=== PATIENT | male | born 1975 | race Caucasian/White ===

== ENCOUNTER 2021-09-14 10:41 | Emergency (ER) | payer SELFPAY ==
[~2021-09-14] VITALS: Ht 172.7 cm; Wt 84.6 kg
[2021-09-14 10:53] VITALS: BP 122/64
[2021-09-14] MEDS ORDERED: FLUORESCEIN (FLUOR-I-STRIPS) 1 MG STRP ONE (10:54)
[2021-09-14] MEDS ORDERED: TETRACAINE 0.5% OPHTH SOLN 4 ML BTL (SINGLE DOSE ONLY) ONE (10:54)
--- NOTE | 2021-09-14 11:12 | ED EENT ---
History of Present Illness General Chief Complaint: Eye Problems Stated Complaint: FB IN LEFT EYE Nursing Triage Note: left eye burning and pain, FB sensation Source: patient Exam Limitations: no limitations History of Present Illness Date Seen by Provider: Sep 14, 2021 Time Seen by Provider: 10:55 Initial Comments Patient is a 46-year-old male who presents with embedded metal foreign body into his left cornea. Patient was grinding metal 2 days ago without wearing safety goggles. He reports increasing pain, tearimg and foreign body sensation upon ri ght vision gaze. No other symptoms or complaints. Last known tetanus is believed to be greater than 10 years. Patient does not work eyeglasses of corrective lenses Timing/Duration: gradual Severity: moderate Location: eye (L) Prearrival Treatment: flushing eyes Modifying Factors: Improves With Other Associated Symptoms: other Allergies and Home Medications Allergies Coded Allergies: No Known Drug Allergies (Unverified , 09/14/21) Patient Home Medication List Home Medication List Reviewed: Yes Review of Systems Review of Systems Constitutional: see HPI Eyes: Blurred Vision, Foreign Body Sensation Past Pzmcsdf-Ieusip-Mbhwuk Hx Patient Social History Tobacco Use?: Yes Tobacco type used: Cigars Substance use?: No Alcohol Use?: No Pt feels they are or have been: No Physical Exam Vital Signs Vital Signs - First Documented 09/14/21 10:53 Temp 36.4 Pulse 67 Resp 16 B/P (MAP) 122/64 (83) Pulse Ox 99 O2 Delivery Room Air Height, Weight, BMI Height: '" Weight: lbs. oz. kg; 28.00 BMI Method: General Appearance: WD/WN Eyes: left eye stye, left eye other (Punctate rust ring at the 5 o'clock positi on of the cornea below the level of the pupil) Progress/Results/Core Measures Results/Orders My Orders Orders - GIGI WOODRUFF DO Fluorescein Strips (Gobbj-[facility]-Medm[facility]) (09/14/21 10:54) Tetracaine 0.5% Ophth Casandra Sdv (Tetracai (09/14/21 10:54) Vital Signs/I&O 09/14/21 10:53 Temp 36.4 Pulse 67 Resp 16 B/P (MAP) 122/64 (83) Pulse Ox 99 O2 Delivery Room Air Blood Pressure Mean: 83 Departure Communication (Admissions) Tetanus updated. Patient referred to local eye doctor who is in clinic this morning Impression Primary Impression: Foreign body of left cornea Disposition: HOME, SELF-CARE Condition: Stable Departure-Patient Inst. Decision time for Depature: 11:13 Referrals: NO,LOCAL PHYSICIAN (PCP/Family) Primary Care Physician Patient Instructions: Foreign Body in Eye ED Add. Discharge Instructions: Please go straight to the local eye doctors clinic at the address provided for evaluation treatment of rust ring. Do not rub your eye All discharge instructions reviewed with patient and/or family. Voiced understanding. GIGI WOODRUFF DO Sep 14, 2021 11:12
[2021-09-14] MEDS ORDERED: TETANUS,DIPTH,PERTUSS P/F (BOOSTRIX) 0.5 ML VIAL IM ONE (11:30)
== END 2021-09-14 11:23 | disposition home or self-care (01) ==
LOC: ER FS 10:44
DX: T15.02XA Foreign body in cornea, left eye, initial encounter (principal); Z72.0 Tobacco use; Z23 Encounter for immunization
CPT/HCPCS: 90715; 99282